=== PATIENT | male | born 1990 | race African-American/Black ===

== ENCOUNTER 2019-09-08 20:31 | Emergency (ER) | payer MEDICAID ==
[~2019-09-08] VITALS: Ht 172.7 cm; Wt 95.3 kg
[2019-09-08 20:40] VITALS: BP_SYST 155
--- NOTE | 2019-09-08 20:46 | NUR ---
Patient to ER bed 05 to gown for evaluation. Side rails up. Report given to DON Kwan
--- NOTE | 2019-09-08 20:48 | NUR ---
Pt complains of headache, back pain, chest wall pain, cough and fever since Sunday. Pt states he has flu like symptoms and has been vomiting and has diarrhea. Pt states he has light green phlegm. No other injuries/complaints per patient or noted.
--- NOTE | 2019-09-08 20:54 | NUR ---
ER at bedside examining patient.
[2019-09-08] MEDS ORDERED: NACL 0.9% 2,000 ML IV ONE (21:00)
[2019-09-08] MEDS ORDERED: KETOROLAC TROMETHAMINE 30 MG VIAL IVP ONE (21:00)
--- NOTE | 2019-09-08 21:40 | NUR ---
PAtient moved to bed 3
--- NOTE | 2019-09-08 22:26 | NUR ---
Patient given written and verbal discharge instructions and verbalizes understanding. ER MD discussed with patient the results and treatment provided. Patient in stable condition. ID arm band removed. IV catheter removed intact and dressing applied, no active bleeding. Rx of Motrin, Tamiflu and Lomotil given. Patient educated on pain management and to follow up with PMD. Pain Scale 0. Opportunity for questions provided and answered. Medication side effect fact sheet provided.
[2019-09-08 22:27] VITALS: BP_SYST 142
--- NOTE | 2019-09-08 22:27 | NUR ---
Note undone in EDM - 09/09/19 at 0528 by [email or web address] Patient given written and verbal discharge instructions and verbalizes understanding. ER discussed with patient the results and treatment provided. Patient in stable condition. ID arm band removed. IV catheter removed intact and dressing applied, no active bleeding. Rx of Motrin, Tamiflu, and Lomotil given. Patient educated on pain management and to follow up with PMD. Pain Scale 0. Opportunity for questions provided and answered. Medication side effect fact sheet provided.
== END 2019-09-08 22:27 | disposition home or self-care (01) ==
LOC: SED 20:31
DX: J11.1 Influenza due to unidentified influenza virus with other respiratory manifestations (principal); R19.7 Diarrhea, unspecified; J45.909 Unspecified asthma, uncomplicated
CPT/HCPCS: 86710; 96361; 96374; 99283; J1885; J7030; 36415